=== PATIENT | female | born 1935 | race Caucasian/White ===

== ENCOUNTER 2018-11-14 10:06 | Emergency (ER) | payer MEDICARE ==
[2018-11-14] MEDS ORDERED: NS 0.9% 1000 ML** 1,000 ML IV ONE (10:22)
--- NOTE | 2018-11-14 10:23 | ED ---
Complex/Multi-Sys Presentation - HPI Summary HPI Summary: This pt is an 83 Y/O F presenting to [facility] with a CC of a laceration to her L forehead after a fall she sustained at 0900 today. The laceration is currently bleeding but is controlled. EMS states that she has bruising to her L elbow and upper forearm. She has increased pain in her hip with ROM. EMS states that she has been falling recently per her longterm and fell yesterday as well as today. EMS had cleaned the wound and placed gauze over the laceration. She has a PMHx of Alzheimers disease and is confused on baseline. Per longterm staff she has become weaker today and yesterday. PT IS A LEVEL 5 CAVEAT DUE TO HER BASELINE MENTAL STATUS. - History Of Current Complaint Chief Complaint: EDFall Time Seen by Provider: 11/14/18 10:13 Hx Obtained From: EMS Hx From Patient Unobtainable Due To: Other - baseline mental status Onset/Duration: Sudden Onset, Lasting Hours - 1 Timing: Constant Severity Currently: None Associated Signs And Symptoms: Positive: Other - laceration to the L forehead, bruising on her L elbow, bruising on her L forearm, recent falls as of yesterday and today - Allergies/Home Medications Allergies/Adverse Reactions: Allergies Allergy/AdvReac Type Severity Reaction Status Date / Time No Known Allergies Allergy Verified 09/26/15 10:40 PMH/Surg Hx/FS Hx/Imm Hx Previously Healthy: Yes Endocrine/Hematology History: Reports: Hx Diabetes, Hx Thyroid Disease Cardiovascular History: Reports: Hx Hypertension Neurological History: Reports: Other Neuro Impairments/Disorders - Alzheimer's Disease - Surgical History Surgical History: Yes Surgery Procedure, Year, and Place: right knee replacement 2008. carpal tunnel Infectious Disease History: No Infectious Disease History: Denies: Traveled Outside the [place] in Last 30 Days - Family History Known Family History: Positive: Non-Contributory Family History: PT IS A LEVEL 5 CAVEAT DUE TO HER BASELINE MENTAL STATUS AND HX OF ALZHEIMER'S DISEASE - Social History Occupation: Retired Lives: [facility] [employer] Alcohol Use: None Hx Substance Use: No Substance Use Type: Reports: None Hx Tobacco Use: No Smoking Status (MU): Never Smoked Tobacco Review of Systems - ROS Summary Review of Systems Summary: A FULL ROS IS UNOBTAINABLE DUE TO THE PT'S BASELINE MENTAL STATUS A RESULT OF A HX OF ALZHEIMER'S DISEASE. Skin: Other - laceration to L forehead, brusing to her L elbow and L forearm All Other Systems Reviewed And Are Negative: No Physical Exam - Summary Physical Exam Summary: General: Well-developed, Well-nourished female. No acute distress. HEENT: Normocephalic, Atraumatic. Eyes: Conjuctiva normal, PERRL. Ears: TMs within normal limits. Nares: (-) discharge, (-) erythema. Oropharynx: Clear, mucous membranes moist, (-) exudates. Neck: Soft, FROM, (-) lymphadenopathy, (-) thyromegaly, (-) JVD. Cardiovascular: Normal sinus rhythm, (-) murmur. Lungs: Clear to auscultation bilaterally (-) wheezes, (-) rales, (-) rhonchi. Abdomen: Soft, non-tender, non-distended, (-) organomegaly, normal bowel sounds. Back: (-) CVA tenderness Extremities: No edema. Skin: Warm, dry, (-) rash. Small bruise on L elbow, 2cm V shaped laceration on the L forehead with ecchymosis. Neuro: Alert and oriented x3, no focal deficits. Psychiatric: Mood normal, affect normal. A FULL PE IS UNOBTAINABLE DUE TO THE PT'S BASELINE MENTAL STATUS BECAUSE OF A HX OF ALZHEIMER'S DISEASE. Triage Information Reviewed: Yes Vital Signs On Initial Exam: Initial Vitals Temp Pulse Resp BP Pulse Ox 98.3 F 66 14 154/60 93 11/14/18 10:08 11/14/18 10:08 11/14/18 10:08 11/14/18 10:08 11/14/18 10:08 Vital Signs Reviewed: Yes Procedures - Laceration/Wound Repair 1 Location: head - L forehead Description: Irregular - V shaped Anesthesia: 1.0%, Lido, Epi Length, Depth and Shape: 2cm V shaped Betadine Prep?: No Laceration/Wound Explored: clean Suture Type: Prolene Number of Sutures: 5 Layer Closure?: Yes Sterile Dressing Applied?: Yes Diagnostics - Vital Signs Vital Signs Temp Pulse Resp BP Pulse Ox 11/14/18 10:08 98.3 F 66 14 154/60 93 - Laboratory Result Diagrams: 11/14/18 10:48 11/14/18 10:48 Lab Statement: Any lab studies that have been ordered have been reviewed, and results considered in the medical decision making process. - Radiology CXR Radiology Interpretation Completed By: Radiologist Summary of Radiographic Findings: Hypoinflated lungs with no focal airspace opacification. ED physician has reviewed this report. - CT Brain CT CT Interpretation Completed By: Radiologist Summary of CT Findings: 1. No acute intracranial abnormality. 2. 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 It causes only mild local mass effect. 3. Mild chronic small vessel ischemic disease is likely. ED physician has reviewed this report. - EKG 1027 Cardiac Rate: NL - 66 BPM EKG Rhythm: Sinus Rhythm ST Segment: Normal Ectopy: None Summary of EKG Findings: EKG at 1027 reveals normal sinus rhythm with rate of 66 BPM, no acute changes, no ischemic changes. This EKG was reviewed and interpreted by Dr. Hair at 1029 11/14/2018. Complex Multi-Symp Course/Dx Course Of Treatment: This pt is an 83 Y/O F presenting to [facility] with a CC of a laceration to her L forehead after a fall she sustained at 0900 today. The laceration is currently bleeding but is controlled. She states that she has bruising to her L elbow and upper forearm. SHE IS A LEVEL 5 CAVEAT DUE TO HER BASELINE MENTAL STATUS BECAUSE OF A HX OF ALZHEIMER'S DISEASE. Her PE found that she had a 2cm laceration on her forehead with ecchymosis and a small bruise on her L forearm. EKG at 1027 reveals normal sinus rhythm with rate of 66 BPM, no acute changes, no ischemic changes. She has abnormal lab values in Total proteins, Magnesium, Glucose, BUN/Creatinine ratio, and INR. Her CXR shows the following: Hypoinflated lungs with no focal airspace opacification. Her Brain CT shows the followin. No acute intracranial abnormality. 2. 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 It causes only mild local mass effect. 3. Mild chronic small vessel ischemic disease is likely. She will be discharged home after she has her 2cm laceration stitched. She was diagnosed with a fall, forehead laceration, and a head injury. She recieved 5 prolene stitches to close the wound. She was also given a tetanus shot before she was discharged. - Diagnoses Provider Diagnoses: Fall, Forehead laceration, Head injury Discharge ED - Sign-Out/Discharge Documenting (check all that apply): Patient Departure - discharge Patient Received Moderate/Deep Sedation with Procedure: No - Discharge Plan Condition: Stable Disposition: HOME Patient Education Materials: Care For Your Stitches (ED), Head Injury (ED), Fall Prevention (ED) Referrals: Alon Millard MD [Primary Care Provider] - 11/23/18 Additional Instructions: PLEASE RETURN TO THE ED IMMEDIATELY FOR WORSENING OR CONCERNING SYMPTOMS. Please have the stitches removed in 7-10 days by either returning to the Emergency Department or by seeing your Primary care physician. - Billing Disposition and Condition Condition: STABLE Disposition: Home - Attestation Statements Document Initiated by Scribe: Yes Documenting Scribe: Morgan Morales Provider For Whom Bipin is Documenting (Include Credential): Miesha Hair MD Scribe Attestation: Morgan Birmingham, scribed for Miesha Hair MD on 11/14/18 at 1331. Scribe Documentation Reviewed: Yes Provider Attestation: The documentation as recorded by the Morgan gomez accurately reflects the service I personally performed and the decisions made by me, Miesha Hair MD Status of Scribe Document: Viewed
[2018-11-14 11:01] LABS: ABS Eosinophils 0.4 10^3/ul (0-0.6); ABS Lymphocytes 1.2 10^3/ul (1.0-4.8); ABS Monocytes 1.3 10^3/ul (0-0.8); ABS Neutrophils 6.5 10^3/ul (1.5-7.7); Eosinophil % 3.8 %; Hematocrit 38 % (35-47); Hemoglobin 12.7 g/dL (12.0-16.0); Lymphocyte % 12.4 %; Mean Corpuscular HGB Conc 33 g/dL (31-36); Mean Corpuscular Hemoglobin 30 pg (27-31); Mean Corpuscular Volume 89 fL (80-97); Mean Platelet Volume 9.9 fL (7.4-10.4); Platelet Count 209 10^3/uL (150-450); Red Blood Count 4.25 10^6 /uL (3.70-4.87); Red Cell Distribution Width 14 % (10-15); White Blood Count 9.4 10^3/uL (3.5-10.8)
[2018-11-14 11:06] LABS: INR 1.12 (0.82-1.09)
[2018-11-14 11:18] LABS: Albumin 3.3 g/dL (3.2-5.2); Albumin/Globulin Ratio 1.1 (1-3); BUN/Creatinine Ratio 22.2 (8-20); Calcium 8.6 mg/dL (8.6-10.3); EGFR African American 94.1 (>60); EGFR Non-African American 77.7 (>60); Magnesium 1.8 mg/dL (1.9-2.7); Total Bilirubin 0.7 mg/dL (0.2-1.0); Total Protein 6.3 g/dL (6.4-8.9)
[2018-11-14 11:20] LABS: Troponin I 0.01 ng/mL (<0.04)
[2018-11-14 12:04] LABS: TSH (Thyroid Stimulating Horm) 2.51 mcIU/mL (0.34-5.60)
[2018-11-14] MEDS ORDERED: Tetan/Diph/Pertus SYR(Tdap)* 0.5 ML SYR(BOOSTRIX) use SYR IM ONE (12:51)
[2018-11-14] MEDS ORDERED: Bacitracin OINTMENT* 0.5% 0.5 oz TUBE TOPICAL ONE (12:52)
[2018-11-14 13:29] LABS: Urine Appearance Clear; Urine Bacteria Absent (Absent); Urine Bilirubin Negative (Negative); Urine Blood Negative (Negative); Urine Color Yellow; Urine Glucose Negative (Negative); Urine Ketones Trace (Negative); Urine Nitrite Negative (Negative); Urine Protein Negative (Negative); Urine Red Blood Cell 2+(6-10/hpf) (Absent); Urine Squamous Epithelial Cell Present (Absent); Urine Urobilinogen Negative (Negative); Urine White Blood Cell 1+(6-10/hpf) (Absent)
[2018-11-14 13:30] VITALS: BP 125/79
== END 2018-11-14 14:25 | disposition home or self-care (01) ==
LOC: ED 10:06
DX: S01.81XA Laceration without foreign body of other part of head, initial encounter (principal); S09.90XA Unspecified injury of head, initial encounter; S50.12XA Contusion of left forearm, initial encounter; W19.XXXA Unspecified fall, initial encounter; Z91.81 History of falling; Y92.129 Unspecified place in nursing home as the place of occurrence of the external cause; Z23 Encounter for immunization; G30.9 Alzheimer's disease, unspecified; F02.80 Dementia in other diseases classified elsewhere, unspecified severity, without behavioral disturbance, psychotic disturbance, mood disturbance, and anxiety; E11.9 Type 2 diabetes mellitus without complications; I10 Essential (primary) hypertension; Z96.651 Presence of right artificial knee joint
CPT/HCPCS: 12011; 36415; 70450; 71046; 80053; 81003; 81015; 83605; 83735; 84443; 84484; 85025; 85610; 87086; 90471; 90715; 93005; 96360; 96361; 99283; A9270-GY

== ENCOUNTER 2018-11-15 10:43 | Emergency (ER) | payer MEDICARE ==
--- NOTE | 2018-11-15 10:45 | ED ---
Adult Trauma - HPI Summary HPI Summary: This pt is an 83 y/o female presenting to [facility] via EMS from [facility] for an unwitnessed fall today. EMS reports pt has had a couple of falls over the weekend. Pt was in the ED yesterday after a fall and had stitches placed over left eyebrow, per EMS. EMS states pt fell again this morning and it was unwitnessed. Per EMS pt had positive head strike. EMS notes pt has hx of Alzheimer's disease and is confused at baseline but is able to give clear answers to questions. Per EMS, staff at [facility] reported today pt seems to have had a decrease in mental status. This morning pt would not speak or stand up, which is not typical for the patient per staff at [facility]. Per EMS pt does not follow commands. When asked if patient has pain, patient points to left arm. HPI IS LIMITED DUE TO LEVEL 5 CAVEAT - pt is nonverbal. - History of Current Complaint Stated Complaint: AMS PER MS Hx Obtained From: Patient, EMS Hx From Patient Unobtainable Due To: Other - LEVEL 5 CAVEAT - pt is nonverbal Mechanism of Injury: Fall Loss of Consciousness: unsure Onset/Duration: Started Days Ago, Still Present Onset of Pain: Days Onset Severity: Moderate Location: Extremities - Left arm Aggravating Factor(s): Nothing Alleviating Factor(s): Nothing Associated Signs & Symptoms: Negative: Fever Related History: Similar Episode - fall yesterday as well - Allergy/Home Medications Allergies/Adverse Reactions: Allergies Allergy/AdvReac Type Severity Reaction Status Date / Time No Known Allergies Allergy Verified 09/26/15 10:40 Home Medications: Home Medications Acetaminophen [Tylenol Extra Strength] 1,000 mg PO BID 11/15/18 [History Confirmed 11/15/18] Divalproex DR TAB(*) [Depakote DR TAB(*)] 250 mg PO BID 11/15/18 [History Confirmed 11/15/18] Divalproex ER TAB(*) [Depakote ER TAB(*)] 250 mg PO BID 11/15/18 [History Confirmed 11/15/18] LORazepam TAB(*) [Ativan 0.5 MG TAB (*)] 0.5 mg PO TID PRN 11/15/18 [History Confirmed 11/15/18] LORazepam TAB(*) [Ativan 0.5 MG TAB (*)] 0.5 mg PO TID PRN 11/15/18 [History Confirmed 11/15/18] Melatonin 5 mg PO BEDTIME 11/15/18 [History Confirmed 11/15/18] Nystatin TOP POWDER* 1 applic TOPICAL BID 11/15/18 [History Confirmed 11/15/18] traMADol TAB* [Ultram*] 50 mg PO BID 11/15/18 [History Confirmed 11/15/18] traZODone TAB* [Desyrel TAB*] 50 mg PO BEDTIME 11/15/18 [History Confirmed 11/15] PMH/Surg Hx/FS Hx/Imm Hx Endocrine/Hematology History: Reports: Hx Diabetes, Hx Thyroid Disease Cardiovascular History: Reports: Hx Hypertension Neurological History: Reports: Hx Dementia, Other Neuro Impairments/Disorders - Alzheimer's Disease - Surgical History Surgery Procedure, Year, and Place: right knee replacement 2008. carpal tunnel - Family History Family History: PT IS A LEVEL 5 CAVEAT DUE TO HER BASELINE MENTAL STATUS AND HX OF ALZHEIMER'S DISEASE - Social History Alcohol Use: None Hx Substance Use: No Substance Use Type: Reports: None Hx Tobacco Use: No Smoking Status (MU): Never Smoked Tobacco Review of Systems - ROS Summary Review of Systems Summary: ROS IS LIMITED DUE TO LEVEL 5 CAVEAT - pt is nonverbal. Negative: Fever Musculoskeletal: Other - POSITIVE: left arm pain Neurological: Other - POSITIVE: nonverbal All Other Systems Reviewed And Are Negative: No Physical Exam - Summary Physical Exam Summary: VITAL SIGNS: Reviewed. GENERAL: Patient is a well-developed and elderly female who is moaning. Patient is not verbal. Unable to obtain any history. HEAD AND FACE: Patient with ecchymosis and repair laceration on left forehead. EYES: PERRLA, EOMI x 2, No injected conjunctiva, no nystagmus. EARS: Hearing grossly intact. Ear canals and tympanic membranes are within normal limits. MOUTH: Oropharynx within normal limits. NECK: Supple, trachea is midline, no adenopathy, no JVD, no carotid bruit, no c- spine tenderness, neck with full ROM. CHEST: Symmetric, no tenderness at palpation LUNGS: Clear to auscultation bilaterally. No wheezing or crackles. CVS: Regular rate and rhythm, S1 and S2 present, no murmurs or gallops appreciated. ABDOMEN: Soft, non-tender. No signs of distention. No rebound no guarding, and no masses palpated. Bowel sounds are normal. EXTREMITIES: Bruising in left elbow. NEURO: Alert and oriented x 3. No acute neurological deficits. Speech is normal and follows commands. SKIN: Dry and warm GCS: 14 Triage Information Reviewed: Yes Vital Signs On Initial Exam: Initial Vitals Temp Pulse Resp BP Pulse Ox 97.2 F 70 18 120/47 94 11/15/18 10:46 11/15/18 10:46 11/15/18 10:46 11/15/18 10:46 11/15/18 10:46 Vital Signs Reviewed: Yes Completion Of Physical Exam Limited Due To: Level 5 - Pt nonverbal Diagnostics - Laboratory Result Diagrams: 11/15/18 11:34 11/15/18 11:34 Lab Statement: Any lab studies that have been ordered have been reviewed, and results considered in the medical decision making process. - Radiology Chest XR Radiology Interpretation Completed By: Radiologist Summary of Radiographic Findings: IMPRESSION: No active cardiopulmonary disease is noted. Dr. Castañeda has reviewed this report. Right elbow XR Radiology Interpretation Completed By: Radiologist Summary of Radiographic Findings: IMPRESSION: 1. No evidence for fracture. 2. Nonaggressive appearing osseous excrescence extends anteromedially from the distal right humeral shaft. If there is point tenderness in this region short- term follow-up imaging could be performed to ensure stability. Dr. Castañeda has reviewed this report. - CT Cervical spine CT CT Interpretation Completed By: Radiologist Summary of CT Findings: IMPRESSION: Osteopenia. Degenerative disc disease and osteoarthritis. No acute osseous injury to the cervical spine. Dr. Castañeda has reviewed this report. Brain CT CT Interpretation Completed By: Radiologist Summary of CT Findings: IMPRESSION: 1. Stable head CT from November 14, 2018 with no acute intracranial abnormality. 2. Probable anterior cranial fossa meningioma, causing mild local mass effect, is redemonstrated. Dr. Castañeda has reviewed this report. - EKG 10:57 Cardiac Rate: NL - at 71 bpm EKG Rhythm: Sinus Rhythm EKG Comparison: No Significant Change - Similar to prior in 11/14/18. Summary of EKG Findings: Sinus rhythm at [address] elevations. Inverted T waves in lead III. Re-Evaluation - Re-Evaluation First Eval Re-Evaluation Time: 13:21 Comment: Spoke with both daughters. Since we did not find an acute pathology today, both daughters agree [facility] the [facility]. Adult Trauma Course/Dx - Course Assessment/Plan: Blood work without any significant abnormality except for WBC of 12.4, neutrophils 10.5, Glucose 123, magnesium 1.7, CPK of 645. The patient was given magnesium for the hypomagnesemia. However the patient MOLST is no IV fluids to treat the CPK. Elbow x ray IMPRESSION: 1. NO EVIDENCE FOR FRACTURE. 2. NONAGGRESSIVE APPEARING OSSEOUS EXCRESCENCE EXTENDS ANTEROMEDIALLY FROM THE DISTAL. RIGHT HUMERAL SHAFT. IF THERE IS POINT TENDERNESS IN THIS REGION SHORT-TERM FOLLOW-UP. IMAGING COULD BE PERFORMED TO ENSURE STABILITY. C spine CT impression: OSTEOPENIA. DEGENERATIVE DISC DISEASE AND OSTEOARTHRITIS. NO ACUTE OSSEOUS INJURY TO THE CERVICAL SPINE. Head CT IMPRESSION: 1. Stable head CT from November 14, 2018 with no acute intracranial abnormality. 2. Probable anterior cranial fossa meningioma, causing mild local mass effect, is. redemonstrated. CXR IMPRESSION: NO ACTIVE CARDIOPULMONARY DISEASE IS NOTED. In the ED course we did not find any acute pathology. I discussed my physical exam and findings with both daughters who were with the patient and since we did not find any abnormalities they agree for the patient to be transferred back to [facility]. The patient is hemodynamically stable. - Diagnoses Provider Diagnoses: Fall Discharge ED - Sign-Out/Discharge Documenting (check all that apply): Patient Departure - Discharge home Patient Received Moderate/Deep Sedation with Procedure: No - Discharge Plan Condition: Stable Disposition: HOME Patient Education Materials: Fall Prevention for Older Adults (ED) Referrals: Alon Millard MD [Primary Care Provider] - Additional Instructions: FOLLOW UP WITH YOUR PRIMARY CARE PROVIDER IN 2-3 DAYS. RETURN TO THE EMERGENCY DEPARTMENT FOR ANY WORSENING OR NEW SYMPTOMS. - Billing Disposition and Condition Condition: STABLE Disposition: Home - Attestation Statements Document Initiated by Scribe: Yes Documenting Scribe: Laure Vázquez Provider For Whom Scribe is Documenting (Include Credential): Eleazar Castañeda MD Scribe Attestation: Laure Birmingham, scribed for Eleazar Castañeda MD on 11/15/18 at 2137. Scribe Documentation Reviewed: Yes Provider Attestation: The documentation as recorded by the irisibeLaure accurately reflects the service I personally performed and the decisions made by me, Eleazar Castañeda MD Status of Bipin Document: Viewed
[2018-11-15] MEDS ORDERED: NS 0.9% 1000 ML** 1,000 ML IV ONE (10:47)
[2018-11-15 11:50] LABS: ABS Lymphocytes 0.8 10^3/ul (1.0-4.8); ABS Neutrophils 10.5 10^3/ul (1.5-7.7); Eosinophil % 0.2 %; Hematocrit 40 % (35-47); Hemoglobin 13.2 g/dL (12.0-16.0); Lymphocyte % 6.5 %; Mean Corpuscular HGB Conc 33 g/dL (31-36); Mean Corpuscular Hemoglobin 30 pg (27-31); Mean Corpuscular Volume 90 fL (80-97); Mean Platelet Volume 11.4 fL (7.4-10.4); Platelet Count 154 10^3/uL (150-450); Red Blood Count 4.41 10^6 /uL (3.70-4.87); Red Cell Distribution Width 14 % (10-15); White Blood Count 12.4 10^3/uL (3.5-10.8)
[2018-11-15 12:02] LABS: ALT 14 U/L (7-52); AST 30 U/L (13-39); Albumin 3.6 g/dL (3.2-5.2); Albumin/Globulin Ratio 1.2 (1-3); Alkaline Phosphatase 70 U/L (34-104); Anion Gap 6 mmol/L (2-11); BUN/Creatinine Ratio 18.5 (8-20); Blood Urea Nitrogen 12 mg/dL (6-24); CO2 Carbon Dioxide 26 mmol/L (22-32); Calcium 8.9 mg/dL (8.6-10.3); Chloride 105 mmol/L (101-111); Creatine Kinase 645 U/L (10-223); EGFR African American 105.9 (>60); EGFR Non-African American 87.5 (>60); Globulin 3.1 g/dL (2-4); Glucose 123 mg/dL (70-100); Magnesium 1.7 mg/dL (1.9-2.7); Potassium 4.2 mmol/L (3.5-5.0); Sodium 137 mmol/L (135-145); Total Protein 6.7 g/dL (6.4-8.9)
[2018-11-15] MEDS ORDERED: Magnesium Oxide TAB* 400 MG PO ONE (12:06)
[2018-11-15 13:09] LABS: Acetaminophen < 15 mcg/mL; Alcohol < 10 mg/dL (<10)
[2018-11-15 13:13] LABS: Urine Appearance Clear; Urine Bilirubin Negative (Negative); Urine Blood Negative (Negative); Urine Color Yellow; Urine Glucose Negative (Negative); Urine Ketones Trace (Negative); Urine Nitrite Negative (Negative); Urine Protein Negative (Negative); Urine Specific Gravity 1.008 (1.010-1.030); Urine Urobilinogen Negative (Negative)
[2018-11-15 13:35] LABS: Urine Benzodiazepine Screen None Detected (None Detect); Urine Opiates Screen None Detected (None Detect)
[2018-11-15 14:14] VITALS: BP 120/48
== END 2018-11-15 14:13 | disposition home or self-care (01) ==
LOC: ED 10:43
DX: Z04.3 Encounter for examination and observation following other accident (principal); W18.30XA Fall on same level, unspecified, initial encounter; Y92.099 Unspecified place in other non-institutional residence as the place of occurrence of the external cause; E11.9 Type 2 diabetes mellitus without complications; E07.9 Disorder of thyroid, unspecified; I10 Essential (primary) hypertension; G30.9 Alzheimer's disease, unspecified; F02.80 Dementia in other diseases classified elsewhere, unspecified severity, without behavioral disturbance, psychotic disturbance, mood disturbance, and anxiety; M50.30 Other cervical disc degeneration, unspecified cervical region; M85.88 Other specified disorders of bone density and structure, other site; M47.9 Spondylosis, unspecified; Z96.651 Presence of right artificial knee joint; Z79.899 Other long term (current) drug therapy
CPT/HCPCS: 36415; 70450; 71045; 72125; 80053; 80307; 80320; 80329; 81003; 82140; 82550; 83605; 83735; 84484; 85025; 87641; 93005; 96360; 96361; 99283; G0480

== ENCOUNTER 2020-01-02 09:37 | Observation (INO) ==
[2020-01-02] MEDS ORDERED: Ammonia Inhalant 1 EA AMP INH ONE (09:54)
[2020-01-02 11:03] LABS: ABS Eosinophils 0.1 10^3/ul (0-0.6); ABS Lymphocytes 1.1 10^3/ul (1.0-4.8); ABS Monocytes 0.7 10^3/ul (0-0.8); ABS Neutrophils 5.5 10^3/ul (1.5-7.7); Eosinophil % 1.5 %; Hematocrit 40 % (35-47); Hemoglobin 13.2 g/dL (12.0-16.0); Lymphocyte % 15.3 %; Mean Corpuscular HGB Conc 33 g/dL (31-36); Mean Corpuscular Hemoglobin 29 pg (27-31); Mean Corpuscular Volume 88 fL (80-97); Mean Platelet Volume 11.3 fL (7.4-10.4); Nucleated Red Blood Cells % 0.1; Platelet Count 189 10^3/uL (150-450); Red Cell Distribution Width 15 % (10-15); White Blood Count 7.5 10^3/uL (3.5-10.8)
[2020-01-02 11:30] LABS: Albumin 3.8 g/dL (3.2-5.2); Albumin/Globulin Ratio 1.1 (1-3); BUN/Creatinine Ratio 26.2 (8-20); Calcium 9.1 mg/dL (8.6-10.3); EGFR African American 105.6 (>60); EGFR Non-African American 87.3 (>60); Globulin 3.5 g/dL (2-4); Potassium 4.1 mmol/L (3.5-5.0); Total Bilirubin 0.6 mg/dL (0.2-1.0); Total Protein 7.3 g/dL (6.4-8.9)
[2020-01-02 11:32] LABS: Troponin I 0.01 ng/mL (<0.03)
[2020-01-02 11:43] LABS: Activated Partial Thrombo Time 31.2 seconds (26.0-38.0); INR 1.08 (0.82-1.09)
[2020-01-02] MEDS ORDERED: Iodixanol (CONTRAST) 320 MG/ML 100 ML SDV IV ONE (11:46)
[2020-01-02] MEDS ORDERED: Lorazepam PYXIS KEY PRN ×2 (12:12→13:32)
[2020-01-02] MEDS ORDERED: LORazepam 2 mg VIAL 1 ml IV PUSH ONE ×2 (12:12→13:32)
[2020-01-02] MEDS ORDERED: LORazepam 2 mg VIAL 1 ml ONE (12:14)
[2020-01-02] MEDS ORDERED: Lorazepam PYXIS KEY ONE (12:14)
[2020-01-02] MEDS ORDERED: diPHENhydraMINE IV 50 MG/ML 1 ml VIAL (BENADRYL) SLOW PUSH ONE (14:10)
[2020-01-02] MEDS ORDERED: Ondansetron 4 mg VIAL 2 MG/ML 2 ml VIAL IV PRN (18:14)
[2020-01-02] MEDS ORDERED: Al Hydrox/Mg Hydrox/Simet LIQ 30 ML UDC PO PRN (18:14)
[2020-01-02] MEDS ORDERED: NS 0.9% 1000 ml BAG 1,000 ML IV SCH (18:15)
[2020-01-02 18:53] LABS: HDL Cholesterol 51.9 mg/dL
[2020-01-02 19:01] LABS: TSH Ultra Thyroid Stim Horm 1.7 mcIU/mL (0.34-5.60)
[2020-01-02] MEDS ORDERED: diPHENhydraMINE IV 50 MG/ML 1 ml VIAL (BENADRYL) IV ONE (20:15)
[2020-01-02] MEDS: Enoxaparin 40 MG/0.4 ML SYR SUBCUT SCH (22:50)
[2020-01-03] MEDS ORDERED: Aspirin EC 81 mg TAB.EC (enteric coated) PO SCH ×2 (15:43→21:00)
[2020-01-03] MEDS: Enoxaparin 40 MG/0.4 ML SYR SUBCUT SCH (21:11)
[2020-01-04 08:28] VITALS: BP 151/56
== END 2020-01-04 10:45 ==
LOC: MEDTELE 09:37 → ED 09:37 → MEDTELE 22:08
PROVIDERS: ADMIT Pediatrics; ATTEND Internal Medicine